=== PATIENT | female | born 1945 ===

== ENCOUNTER 2019-03-14 11:47 | Day surgery (SDC) | payer MEDICARE, OTHER ==
[~2019-03-14] VITALS: Ht 172.7 cm; Wt 65.4 kg
[2019-03-14] MEDS ORDERED: Flonase 0.05% N16 GM (12:08)
[2019-03-14] MEDS ORDERED: OMEPRAZOLE MAGN20 MG (12:09)
[2019-03-14] MEDS ORDERED: Collagen Plus1 EACH (12:10)
[2019-03-14] MEDS ORDERED: Hair, Skin & N1 EACH (12:10)
== END 2019-03-14 13:15 | disposition home or self-care (01) ==
LOC: ORSCSDS 11:47
PROVIDERS: Internal Medicine Gastroenterology
PROC: 0DB68ZX Excision of Stomach, Via Natural or Artificial Opening Endoscopic, Diagnostic (ICD-10-PCS; principal; 2019-03-14 13:00)
PROC: 0D748ZZ Dilation of Esophagogastric Junction, Via Natural or Artificial Opening Endoscopic (ICD-10-PCS; principal; 2019-03-14 13:00)
DX: R13.10 Dysphagia, unspecified (principal); K29.80 Duodenitis without bleeding; K25.9 Gastric ulcer, unspecified as acute or chronic, without hemorrhage or perforation; K29.70 Gastritis, unspecified, without bleeding; Z79.899 Other long term (current) drug therapy
CPT/HCPCS: 88305; 88342; J2250; J2704; J7120